=== PATIENT | female | born 1955 | race African-American/Black ===

== ENCOUNTER 2021-08-05 15:35 | Emergency (ER) | payer OTHER ==
[2021-08-05 15:45] VITALS: BMI 34.2
[2021-08-05] MEDS ORDERED: ACETAMINOPHEN 1000 MG/100 ML VIAL IVPB ONE (17:19)
[2021-08-05] MEDS ORDERED: ACETAMINOPHEN INJECTION 100 ML IVPB ONE (17:25)
[2021-08-05 17:30] LABS: BASO % 1.2 % (0-2.0); EOS % 2.2 % (0-4.5); HEMATOCRIT 38.3 % (32.4-45.2); HEMOGLOBIN 12.4 GM/dL (10.7-15.3); LYMPH % 24.3 % (8-40); MCH 27.2 pg (25.7-33.7); MCHC 32.2 g/dl (32.0-36.0); MEAN CELL VOLUME 84.3 fl (80-96); MEAN PLT VOLUME 8.8 fl (7.5-11.1); MONO % 8.5 % (3.8-10.2); NEUT % 63.8 % (42.8-82.8); PLATELET COUNT 226 10^3/uL (134-434); RBC 4.55 M/mm3 (3.60-5.2); RDW 15.7 % (11.6-15.6); WHITE BLOOD COUNT 5.8 K/mm3 (4.0-10.0)
[2021-08-05 17:37] LABS: INR 0.91 (0.83-1.09); PROTHROMBIN TIME (PATIENT) 10.2 SEC (9.7-13.0)
[2021-08-05 17:39] LABS: ACTIVATED PTT 30.2 SECONDS (25.2-36.5)
[2021-08-05 18:09] LABS: ALBUMIN 3.3 g/dl (3.4-5.0); BLOOD UREA NITROGEN 18.5 mg/dL (7-18); CALCIUM 8.7 mg/dL (8.5-10.1)
[2021-08-05 18:12] LABS: CREATININE 1.1 mg/dL (0.55-1.3)
[2021-08-05 18:14] LABS: BILIRUBIN,TOTAL 0.6 mg/dL (0.2-1); TOT PROT 7.3 g/dl (6.4-8.2)
[2021-08-05] MEDS ORDERED: morphine CARPU-JECT 4 MG/1 ML DISP.SYRIN IVPUSH ONE (20:32)
[2021-08-05] MEDS ORDERED: morphine SULFATE 4 MG/ML VIAL ONE (20:37)
[2021-08-05 20:38] LABS: EPI CELLS >36 /uL (0-25.1); HYALINE CASTS 2 /uL (0-3.1); PH,URINE 6.5 (5.0-8.0); URINE APPEARANCE CLOUDY; URINE BACTERIA 1886 /uL (0-1359); URINE BILIRUBIN NEGATIVE (NEGATIVE); URINE COLOR DK YELLOW; URINE GLUCOSE (UA) NEGATIVE (NEGATIVE); URINE KETONE TRACE (NEGATIVE); URINE LEUK ESTERASE 2+ (NEGATIVE); URINE NITRITE NEGATIVE (NEGATIVE); URINE PROTEIN NEGATIVE (NEGATIVE); URINE RBC 7 /uL (0-23.9); URINE UROBILINOGEN 4.0 E.U/dl mg/dL (0.2-1.0); URINE WBC 157 /uL (0-25.8)
[2021-08-05] MEDS ORDERED: VANCOMYCIN 1 GM in D5W (PRE-DOCKED) 1,000 MG/250 ML IVPB ONE (20:50)
[2021-08-05] MEDS ORDERED: PIPERACILLIN/TAZOB 3.375 GM 3.375 GM in DEXTROSE 5%-WATER - 50 ML IVPB ONE (20:50)
[2021-08-05] MEDS ORDERED: PIPERACILLIN/TAZOB 3.375 GM 3.375 GM/50 ML BAG IVPB ONE (20:57)
[2021-08-05] MEDS ORDERED: VANCOMYCIN 1 GRAM (PRE-DOCKED) 1,000 MG/250 ML BAG IVPB ONE (21:40)
[2021-08-06 06:11] VITALS: BP 104/46; PULSE 74; TEMP 98.9
== END 2021-08-06 06:12 | disposition short-term general hospital (02) ==
LOC: JER 15:35
PROC: 3E03329 Introduction of Other Anti-infective into Peripheral Vein, Percutaneous Approach (ICD-10-PCS; principal; 2021-08-05)
PROC: 3E03329 Introduction of Other Anti-infective into Peripheral Vein, Percutaneous Approach (ICD-10-PCS; 2021-08-05)
PROC: 3E033NZ Introduction of Analgesics, Hypnotics, Sedatives into Peripheral Vein, Percutaneous Approach (ICD-10-PCS; 2021-08-05)
PROC: 3E033GC Introduction of Other Therapeutic Substance into Peripheral Vein, Percutaneous Approach (ICD-10-PCS; 2021-08-05)
DX: T81.49XA Infection following a procedure, other surgical site, initial encounter (principal)
CPT/HCPCS: 36415; 73562-TC-LT-FY; 80053; 81003; 83605; 85025; 85610; 85730; 87040; 87086; 93005; 93010; 93971-TC; 96365; 96375; 96376; 99285-25; C9803; J0131; U0003; U0005

== ENCOUNTER 2024-08-22 22:05 | Emergency (ER) | payer OTHER ==
[2024-08-22 22:10] VITALS: BP 153/86; PULSE 64; RESP 20; TEMP 97.6; BMI 36.8
[2024-08-22] MEDS ORDERED: ACETAMINOPHEN INJECTION 100 ML ONE (23:11)
[2024-08-22] MEDS ORDERED: FAMOTIDINE 20 MG/50 ML IVPB 20 MG/50 ML MG IVPB ONE (23:11)
[2024-08-22 23:12] LABS: BASO % 0.6 % (0-2.0); EOS % 1.9 % (0-4.5); HEMATOCRIT 38.1 % (32.4-45.2); HEMOGLOBIN 12.1 GM/dL (10.7-15.3); LYMPH % 14.1 % (8-40); MCHC 31.8 g/dl (32.0-36.0); MEAN CELL VOLUME 84.9 fl (80-96); MEAN PLT VOLUME 8.3 fl (7.5-11.1); NEUT % 76.4 % (42.8-82.8); PLATELET COUNT 153 10^3/uL (134-434); RBC 4.49 M/mm3 (3.60-5.2); WHITE BLOOD COUNT 6.8 K/mm3 (4.0-10.0)
[2024-08-22] MEDS: SODIUM CHLORIDE 1,000 ML IV STA (23:17)
[2024-08-22] MEDS: ACETAMINOPHEN 1000 MG/100 ML BAG IVPB ONE (23:17)
[2024-08-22 23:18] LABS: INR 0.95 (0.83-1.09); PROTHROMBIN TIME (PATIENT) 10.7 SEC (9.7-13.0)
[2024-08-22] MEDS: FAMOTIDINE 20 MG/50 ML IVPB 20 MG/50 ML MG IVPB ONE (23:18)
[2024-08-22 23:21] LABS: ACTIVATED PTT 30.9 SECONDS (25.2-36.5)
[2024-08-22 23:31] LABS: POTASSIUM 3.9 mmol/L (3.5-5.1)
[2024-08-22 23:33] LABS: ALBUMIN 3.2 g/dl (3.4-5.0); BLOOD UREA NITROGEN 20.5 mg/dL (7-18); CALCIUM 8.2 mg/dL (8.5-10.1)
[2024-08-22 23:36] LABS: CREATININE 0.9 mg/dL (0.55-1.3)
[2024-08-22 23:38] LABS: TOT PROT 6.6 g/dl (6.4-8.2)
[2024-08-22 23:46] LABS: BILIRUBIN,TOTAL 0.4 mg/dL (0.2-1)
[2024-08-22] MEDS ORDERED: MORPHINE SULFATE 2 MG/ML SYRINGE ONE (23:50)
[2024-08-22] MEDS: morphine SULFATE 4 MG/ML VIAL IVPUSH ONE (23:55)
[2024-08-23] MEDS ORDERED: KETOROLAC TROMETHAMINE 30 MG/1 ML VIAL ONE (01:17)
[2024-08-23] MEDS: KETOROLAC TROMETHAMINE 30 MG/1 ML VIAL IVPUSH ONE (01:31)
== END 2024-08-23 03:42 | disposition home or self-care (01) ==
LOC: JER 22:05
PROC: 3E033GC Introduction of Other Therapeutic Substance into Peripheral Vein, Percutaneous Approach (ICD-10-PCS; principal; 2024-08-22)
PROC: 3E033NZ Introduction of Analgesics, Hypnotics, Sedatives into Peripheral Vein, Percutaneous Approach (ICD-10-PCS; 2024-08-22)
PROC: 3E033NZ Introduction of Analgesics, Hypnotics, Sedatives into Peripheral Vein, Percutaneous Approach (ICD-10-PCS; 2024-08-22)
PROC: 3E0333Z Introduction of Anti-inflammatory into Peripheral Vein, Percutaneous Approach (ICD-10-PCS; 2024-08-23)
DX: R10.13 Epigastric pain (principal); M54.50 Low back pain, unspecified; R11.0 Nausea
CPT/HCPCS: 36415; 71045-TC-FY; 76705-TC; 80053; 83605; 83690; 84484; 85025; 85610; 85730; 93005; 93010; 96365; 96375; 99285-25; J0131